=== PATIENT | female | born 1960 | race Caucasian/White ===

== ENCOUNTER → 2023-08-18 12:08 | Outpatient (REF) | payer BC, SELFPAY | LOC: RAD 12:08 | PROVIDERS: ATTENDING PHYSICIAN Family Medicine | DX: R05.8 Other specified cough (principal); M79.651 Pain in right thigh | CPT/HCPCS: 71046; 93971 ==

== ENCOUNTER → 2023-09-10 12:01 | Outpatient (REF) | payer BC, SELFPAY | LOC: HWRAD 12:01 | PROVIDERS: ATTENDING PHYSICIAN Family Medicine; FAMILY PHYSICIAN Physician Assistant Medical | DX: J18.9 Pneumonia, unspecified organism (principal); E55.9 Vitamin D deficiency, unspecified | CPT/HCPCS: 71046 ==

== ENCOUNTER → 2024-01-12 08:21 | Outpatient (REF) | payer BC, SELFPAY | LOC: HWRAD 08:21 | PROVIDERS: ATTENDING PHYSICIAN Family Medicine; REFERRING PHYSICIAN Family Medicine | DX: J18.9 Pneumonia, unspecified organism (principal) | CPT/HCPCS: 71250 ==

== ENCOUNTER → 2024-02-06 08:38 | Outpatient (REF) | payer BC, SELFPAY | LOC: PET 08:38 | PROVIDERS: ATTENDING PHYSICIAN Family Medicine | DX: R91.1 Solitary pulmonary nodule (principal) | CPT/HCPCS: 78815; A9552 ==

== ENCOUNTER 2024-03-01 06:19 | Day surgery (SDC) | payer BC, SELFPAY ==
[2024-02-24 07:45] VITALS: BMI 31.7
[2024-02-24 08:53] LABS: INR 0.95; PT 12.5 Sec (11.4-14.6)
[2024-02-24 08:54] LABS: APTT 29.5 Sec (23.4-35.0)
[2024-02-24 08:55] LABS: Hemoglobin 12.5 g/dL (12.0-16.0); Mean Corp Hgb Conc. 34.7 g/dL (33.0-37.0); Mean Corpuscular Hgb 31.3 pg (27.0-31.0); Mean Corpuscular Volume 90.2 fL (81.0-99.0); Mean Platelet Volume 11.3 fL (7.4-10.4); Platelet Count 171 10^3/uL (130-400); Red Blood Cell Count 3.99 10^6/uL (4.20-5.40); Red Cell Dist. Width 12.7 % (11.5-14.5); White Blood Cell Count 2.6 10^3/uL (4.8-10.8)
[2024-02-24 09:19] LABS: Blood Urea Nitrogen 20 mg/dl (7-17); Calcium 9.3 mg/dl (8.4-10.2); Carbon Dioxide 25 mmol/L (22-30); Chloride 107 mmol/L (98-107); Estimated Creatinine Clearance 83 ml/min; Glucose 93 mg/dl (70-99); Sodium 139 mmol/L (135-145); eGFR > 60.00
[2024-03-01] VITALS (11 sets, daily range): BP systolic 112–144; BP diastolic 56–85; BMI 31.7
[2024-03-01] MEDS: ZOFRAN 4 MG IV (11:49)
== END 2024-03-01 14:16 | disposition home or self-care (01) ==
LOC: GI 06:19
PROVIDERS: ATTENDING PHYSICIAN Internal Medicine Critical Care Medicine; FAMILY PHYSICIAN Family Medicine
DX: R59.0 Localized enlarged lymph nodes (principal); R91.8 Other nonspecific abnormal finding of lung field; D14.32 Benign neoplasm of left bronchus and lung
CPT/HCPCS: 31629; 31628; 31624; 31623; 31627; 88173; 88305; 88312; 36415; 71045; 76000; 80048; 85027; 85610; 85730; 87015; 87070; 87102; 87116; 87205; 88112; 88333; 93005; 94640; C1887

== ENCOUNTER → 2024-05-24 09:37 | Outpatient (REF) | payer BC, SELFPAY | LOC: HWWDC 09:37 | PROVIDERS: ATTENDING PHYSICIAN Family Medicine | DX: Z12.31 Encounter for screening mammogram for malignant neoplasm of breast (principal) | CPT/HCPCS: 77063; 77067 ==

== ENCOUNTER → 2024-08-25 14:17 | Outpatient (REF) | payer OTHER, SELFPAY | LOC: HWRAD 14:17 | PROVIDERS: ATTENDING PHYSICIAN Family Medicine | DX: S89.92XA Unspecified injury of left lower leg, initial encounter (principal); M54.16 Radiculopathy, lumbar region | CPT/HCPCS: 72110; 73564 ==

== ENCOUNTER → 2024-09-30 09:21 | Outpatient (REF) | payer OTHER, SELFPAY | LOC: HWRAD 09:21 | PROVIDERS: ATTENDING PHYSICIAN Obstetrics & Gynecology Gynecology; FAMILY PHYSICIAN Family Medicine | DX: Z78.0 Asymptomatic menopausal state (principal) | CPT/HCPCS: 77080 ==

== ENCOUNTER → 2024-11-12 10:51 | Outpatient (REF) | payer MEDICARE, SELFPAY | LOC: PAVMRI 10:51 | PROVIDERS: ATTENDING PHYSICIAN Family Medicine | DX: M25.562 Pain in left knee (principal); M25.469 Effusion, unspecified knee; M79.605 Pain in left leg | CPT/HCPCS: 73721 ==

== ENCOUNTER 2025-01-03 11:44 | Emergency (ER) | payer MEDICARE, SELFPAY ==
[2025-01-03 11:47] VITALS: BP 172/118
[2025-01-03 12:13] LABS: % Basophils 1.1 % (0-2); % Eosinophils 7.7 % (0-6); % Immature Granulocytes 0.5 % (0-0.5); % Lymphocytes 21.4 % (20.5-51.1); % Monocytes 12.5 % (1.7-9.3); % Neutrophils 56.8 % (42.2-75.2); Absolute Basophils 0.1 10^3/uL (0-0.2); Absolute Eosinophils 0.3 10^3/uL (0-0.7); Absolute Lymphocytes 0.9 10^3/uL (1.2-3.4); Absolute Monocytes 0.6 10^3/uL (0.1-0.6); Absolute Neutrophils 2.5 10^3/uL (1.4-6.5); Hematocrit 40.7 % (37.0-47.0); Hemoglobin 14.3 g/dL (12.0-16.0); Mean Corp Hgb Conc. 35.1 g/dL (33.0-37.0); Mean Corpuscular Hgb 31.2 pg (27.0-31.0); Mean Corpuscular Volume 88.9 fL (81.0-99.0); Mean Platelet Volume 10.1 fL (7.4-10.4); Nucleated Red Blood Cells % 0 %; Platelet Count 198 10^3/uL (130-400); Red Blood Cell Count 4.58 10^6/uL (4.20-5.40); Red Cell Dist. Width 13.1 % (11.5-14.5); White Blood Cell Count 4.4 10^3/uL (4.8-10.8)
[2025-01-03 12:14] VITALS: BP 178/85
[2025-01-03 12:18] LABS: Glucose - Point of Care 110 mg/dl (70-99)
[2025-01-03 12:40] LABS: ALT (SGPT) 64 U/L (0-35); AST (SGOT) 36 U/L (14-36); Albumin 4.9 g/dl (3.5-5.0); Alkaline Phosphatase 127 U/L (38-126); Blood Urea Nitrogen 19 mg/dl (7-17); Calcium 10.2 mg/dl (8.4-10.2); Carbon Dioxide 25 mmol/L (22-30); Glucose 106 mg/dl (70-99); Total Bilirubin 1.1 mg/dl (0.2-1.3); Total Protein 8.1 g/dl (6.3-8.2); eGFR > 60.00
[2025-01-03 12:51] LABS: Troponin I < 0.012 ng/ml
[2025-01-03 13:08] LABS: Chloride 107 mmol/L (98-107); Sodium 139 mmol/L (135-145)
--- NOTE | 2025-01-03 13:27 | ED.GENMED ---
History of Present Illness
<YOMAIRA Molina Last Filed: 01/03/25 16:40>
General
Chief Complaint: Numbness
Source: patient
Exam Limitations: none
Time Seen by Provider: 01/03/25 12:43
History of Present Illness
History of Present Illness:
64-year-old female otherwise quite healthy presents with dyspnea on exertion worsening over several days with constant chest pain on the left side with associated numbness to the left hand. Than the left hand numbness has been present over the past
couple weeks. Yesterday she was sitting eating a meal and developed the sudden onset of a dizzy sensation. This resolved since then. No vomiting. She does note that every now and then she gets abdominal pain after she eats. The pain in her
chest is constant without any aggravating or alleviating factors. No other complaints at this time
Past History
<YOMAIRA Molina Last Filed: 01/03/25 16:40>
Past History
ED Past Medical History: Other (Lipoma removal)
ED Past Surgical History: None
Social History
Tobacco: Non-smoker
Alcohol: None
Drug: None
Personal:
Living: with family
Employment: Employed
Family History
Family History: Negative Early CAD
Phy Exam
<YOMAIRA Molina Last Filed: 01/03/25 16:40>
Physical Exam
Physical Exam:
General: Well-appearing female no acute respiratory distress
HEENT: Normocephalic atraumatic
Heart: Regular rate and rhythm
Lungs: Clear no wheeze
Abdomen is soft nontender nondistended
Extremities: No cyanosis
Neurologic alert and oriented good strength and sensation to the upper lower extremities no drift
Course
<YOMAIRA Molina Last Filed: 01/03/25 16:40>
Orders/Labs/Results
Orders:
Orders
01/03/25 11:49
Electrocardiogram (*1) Urgent
Reason for Study: Chest Pain
CT Head W/o Iv Contrast Urgent
Comment:
Reason For Exam: head pain and left arm numbness
EKG- Treatment ONCE
01/03/25 11:59
Complete Blood Count/With Diff Urgent
Comprehensive Metabolic Panel Urgent
Troponin I Urgent
01/03/25 12:57
CR Chest - 2 Views Urgent
Comment:
Reason For Exam: sob
01/03/25 14:17
D-Dimer Urgent
01/03/25 15:00
CT Head & Neck Angio W/wo IV Urgent
Reason For Exam: neck pain, dizziness
Abnormal Lab Results
01/03/25 01/03/25
11:59 12:16
WBC 4.4 L 10^3/uL
(4.8-10.8)
MCH 31.2 H pg
(27.0-31.0)
Absolute Lymphs (auto) 0.9 L 10^3/uL
(1.2-3.4)
Monocytes % 12.5 H %
(1.7-9.3)
Eosinophils % 7.7 H %
(0-6)
BUN 19 H mg/dl
(7-17)
Glucose 106 H mg/dl
(70-99)
ALT 64 H U/L
(0-35)
Alkaline Phosphatase 127 H U/L
(38-126)
POC Glucose 110 H mg/dl
(70-99)
01/03/25 11:59
01/03/25 11:59
Vital Signs
Initial and Last Documented VS:
Initial Vital Signs
Temp Pulse Resp BP Pulse Ox
98.0 F 105 16 172/118 98
01/03/25 11:47 01/03/25 11:47 01/03/25 11:47 01/03/25 11:47 01/03/25 11:47
Last Documented Vital Signs
Temp Pulse Resp BP Pulse Ox
98.0 F 75 18 169/97 98
01/03/25 11:47 01/03/25 16:37 01/03/25 16:37 01/03/25 16:37 01/03/25 16:37
<Yobani Tan MD - Last Filed: 01/03/25 14:42>
Orders/Labs/Results
Orders:
Orders
01/03/25 11:49
Electrocardiogram (*1) Urgent
Reason for Study: Chest Pain
CT Head W/o Iv Contrast Urgent
Comment:
Reason For Exam: head pain and left arm numbness
EKG- Treatment ONCE
01/03/25 11:59
Complete Blood Count/With Diff Urgent
Comprehensive Metabolic Panel Urgent
Troponin I Urgent
01/03/25 12:57
CR Chest - 2 Views Urgent
Comment:
Reason For Exam: sob
01/03/25 14:17
D-Dimer Urgent
01/03/25 15:00
CT Head & Neck Angio W/wo IV Urgent
Reason For Exam: neck pain, dizziness
Abnormal Lab Results
01/03/25 01/03/25
11:59 12:16
WBC 4.4 L 10^3/uL
(4.8-10.8)
MCH 31.2 H pg
(27.0-31.0)
Absolute Lymphs (auto) 0.9 L 10^3/uL
(1.2-3.4)
Monocytes % 12.5 H %
(1.7-9.3)
Eosinophils % 7.7 H %
(0-6)
BUN 19 H mg/dl
(7-17)
Glucose 106 H mg/dl
(70-99)
ALT 64 H U/L
(0-35)
Alkaline Phosphatase 127 H U/L
(38-126)
POC Glucose 110 H mg/dl
(70-99)
01/03/25 11:59
01/03/25 11:59
Vital Signs
Initial and Last Documented VS:
Initial Vital Signs
Temp Pulse Resp BP Pulse Ox
98.0 F 105 16 172/118 98
01/03/25 11:47 01/03/25 11:47 01/03/25 11:47 01/03/25 11:47 01/03/25 11:47
Last Documented Vital Signs
Temp Pulse Resp BP Pulse Ox
98.0 F 75 18 169/97 98
01/03/25 11:47 01/03/25 16:37 01/03/25 16:37 01/03/25 16:37 01/03/25 16:37
<Brayan Cox PA-C - Last Filed: 01/03/25 16:40>
MDM/Problems Addressed
Differential Diagnosis Includes:
Chest pain ongoing since yesterday constant dull ache. Consider ACS however symptoms are atypical. She does endorse some dyspnea on exertion over the past several weeks with associated constant numbness to the left hand.
Consider radiculopathy. No signs suggestive of acute stroke.
CT head ordered through triage. EKG shows sinus rhythm. Troponin pending
<Brayan Cox PA-C - Last Filed: 01/03/25 16:40>
*Pulse Oximetry
SaO2: 98
Oxygen Mode of Delivery: Room air
Patient hypoxic: no
*Critical Care Note
Total Time (30-74mins, 75-104mins- exclusive of procedures): Not Applicable
<Brayan Cox PA-C - Last Filed: 01/03/25 16:40>
Update Note
Update Note:
Discussed with emergency room attending recommended D-dimer which was negative but given the neck pain and paresthesias to the left arm and dizziness will order CT angio of the neck. If negative safe for discharge as troponin is undetectable CT
angio of the head and neck is negative. Patient reassured. Suspect radiculopathy with atypical chest discomfort. Stable for discharge
ED Attending Note
<Brayan Cox PA-C - Last Filed: 01/03/25 16:40>
-
Portions of this chart may have been created with voice recognition software.� Occasional wrong word or��sound alike� substitutions may have occurred due to the inherent limitations of voice recognition software.
<Yobani Tan MD - Last Filed: 01/03/25 14:42>
ED Attending Note
Patient seen and examined by attending physician: Yes
I performed the substantive portion of visit, reviewed & personally made and approve the management plan that is documented in note by myself or HERBERT.: Yes
ED Attending Note:
64-year-old female presents with multiple symptoms. She has had 3 weeks of numbness to the left arm pointing mostly to the 1st and 2nd digit in the superior aspect of the upper arm. No weakness in the arm. No general arm weakness. No other acute
neurologic symptoms, denying visual issues speech issues gait issues other weakness or numbness. She did have a brief episode of disequilibrium yesterday however. This resolved. In addition she has had some shortness of breath with exertion which
is unusual. She also has some left upper chest pain. Currently symptoms are minimal.
On exam patient is nontoxic in no distress
GENERAL: Alert and oriented in no apparent distress
EYE: Orbits normal.
NECK: Supple
CARDIAC: Regular rate and rhythm without any obvious murmurs.
LUNGS: Clear breath sounds,normal
ABDOMEN: Soft, without focal tenderness or distention
NEUROLOGICAL: Alert and oriented , cranial nerves II through XII intact. Speech normal. [id number] normal. Subjectively the paresthesias are to the left 1st and 2nd digit.
SKIN: Warm and dry, no rash or lesion, no discoloration, skin intact.
MUSCULOSKELETAL: No edema,no deformity.Good color
PSYCH: Normal and appropriate interaction.
Impression is paresthesias to the left arm most consistent with radiculopathy along with some shortness of breath upper chest pain nonpleuritic in nature and a very brief episode of disequilibrium yesterday. Cannot totally put all her symptoms
together. She is very nontoxic and has a benign exam. Highly doubt primary cardiac issue as this would not explain all her symptoms, no significant risk factors and exercises very regularly without issues. EKG is normal troponin is normal.
Highly doubt stroke. The paresthesias are very C5-C6 and distribution. As for the shortness of breath would have to rule out pulmonary emboli although unlikely. If D-dimer is negative we will get a chest x-ray and a CT angio of the neck to rule
out dissection which is also unlikely. If D-dimer is positive would CT the chest also.
Discharge Plan
Departure
Patient Disposition: Home (Routine Discharge)
Date of Disposition: 01/03/25
Time of Disposition: 16:39
Patient with high blood pressure during this ER visit?: No
Discharge Problem:
Chest pain
Instructions: Paresthesia (DC), Chest Pain PCP Follow Up
Prescriptions:
No Action
minoxidil 5 % Solution
1 ml TOPICAL BID
Referrals:
Thomas Givens MD [Family Provider, Family Practice]
Activity Restrictions/Additional Instructions:
Please return here for worsening symptoms otherwise follow-up with your doctor
Interventions
Interventions:
*Risk Screen - Suicide Last Done: 01/03/25 11:47
*General Assessment Last Done: 01/03/25 14:28
*Neglect/Abuse Screening Last Done: 01/03/25 11:47
*ED- Fall Risk Assessment Last Done: 01/03/25 14:28
ED- Neurological Assessment Last Done: 01/03/25 14:28
Discharge Date and Time
Print Language: MALAY
[2025-01-03 13:44] LABS: Potassium 4.4 mmol/L (3.5-5.1)
[2025-01-03 14:41] LABS: D-Dimer 0.35 ug/mlFEU (0.00-0.50)
[2025-01-03 16:37] VITALS: BP 169/97
== END 2025-01-03 16:49 | disposition home or self-care (01) ==
LOC: EMR 11:44
PROVIDERS: Emergency Medicine; Physician Assistant; EMERGENCY PHYSICIAN Emergency Medicine; FAMILY PHYSICIAN Family Medicine
DX: R07.89 Other chest pain (principal); E04.2 Nontoxic multinodular goiter
CPT/HCPCS: 99285; 70450; 70496; 70498; 71046; 80053; 82962; 84484; 85025; 85379; 93005; Q9967

== ENCOUNTER → 2025-05-18 08:58 | Outpatient (REF) | payer MEDICARE, SELFPAY | LOC: HWRAD 08:58 | PROVIDERS: ATTENDING PHYSICIAN Family Medicine | DX: E04.1 Nontoxic single thyroid nodule (principal) | CPT/HCPCS: 76536 ==

== ENCOUNTER 2025-06-21 23:35 | Observation (INO) | payer MEDICARE, SELFPAY ==
[2025-06-21 15:47] LABS: Hematocrit 38.3 % (37.0-47.0); Hemoglobin 13.2 g/dL (12.0-16.0); Mean Corp Hgb Conc. 34.5 g/dL (33.0-37.0); Mean Corpuscular Volume 86.5 fL (81.0-99.0); Nucleated Red Blood Cells % 0 %; Platelet Count 208 10^3/uL (130-400); Red Cell Dist. Width 13.2 % (11.5-14.5)
[2025-06-21 18:57] VITALS: BP 158/107
[2025-06-21 19:00] VITALS: BP 188/99
--- NOTE | 2025-06-21 19:28 | ED.CVA ---
History of Present Illness
General
Chief Complaint: CVA/TIA Symptoms
Time Seen by Provider: 06/21/25 19:09
Onset of Stroke Symptoms
Onset of symptoms known: No
Time pt last seen normal is known: No
History of Present Illness
History of Present Illness:
Patient is a 64-year-old woman with history of lung nodules presenting to the emergency department with a headache. Patient states that she has had this headache that occurs after intercourse. This first occurred 2 weeks ago and then occurred 2
days ago. She states that shortly after she developed a 10 out of 10 headache that resolved after 8 to 10 minutes. She states that the headache is all around though does get a tight feeling in her left jaw when it occurs as well. After which she
feels extremely fatigued. She did have nausea with the last headache. No photophobia numbness tingling weakness. However she notes that she is having word finding difficulty. She also notes that she has a subtle left-sided droop to her left
eyelid. Of note she does state that she has cataracts recently but is unsure when she developed the droop. She does not see eye doctor regularly. She did smoke but quit. At this time patient just feels tired but otherwise has no complaints. She
does note that in the past she is also had left-sided numbness that has since resolved. Has never had an MRI or stroke evaluation she talked to her doctor and told her to come to the emergency room for further evaluation
Past History
Past History
ED Past Medical History: Other (Lipoma removal)
ED Past Surgical History: None
Social History
Tobacco: Non-smoker
Alcohol: None
Drug: None
Personal:
Living: with family
Employment: Employed
Family History
Family History: Negative Early CAD
Phy Exam
Physical Exam
Physical Exam:
GENERAL: in no acute distress
HEENT: normocephalic, extraocular movements intact, moist oral mucosa
NECK: normal inspection
RESPIRATORY: no respiratory distress, clear to auscultation bilaterally
CARDIOVASCULAR: regular rate and rhythm
ABDOMEN/: soft, non-distended, non-tender to palpation, no rebound or guarding
EXTREMITIES: non-tender, no edema/swelling
NEUROLOGIC: alert and oriented x 3, cranial nerves II-XII intact except for very subtle droop to the left eye, right upper extremity strength 5/5, left upper extremity strength 5/5, right lower extremity strength 5/5, left lower extremity strength
5/5, normal sensation to light touch, normal [id number] and [id number], gait not tested formally
SKIN: warm
Course
Orders/Labs/Results
Orders:
Orders
06/21/25 15:[address] [CT Head W/o Iv Contrast] Urgent
Comment:
Reason For Exam: L side droop
06/21/25 15:27
Complete Blood Count/With Diff Urgent
06/21/25 19:06
Comprehensive Metabolic Panel Urgent
06/21/25 19:28
CT Head & Neck Angio W/wo IV Urgent
Comment:
Reason For Exam: headache, r/o aneurysm, left jaw pain
06/21/25 19:32
Electrocardiogram (*1) Urgent
Reason for Study: TIA/Stroke
EKG- Treatment ONCE
Abnormal Lab Results
06/21/25 06/21/25
15:27 19:06
WBC 4.2 L 10^3/uL
(4.8-10.8)
Absolute Lymphs (auto) 0.8 L 10^3/uL
(1.2-3.4)
Lymphocytes % 18.9 L %
(20.5-51.1)
Monocytes % 10.7 H %
(1.7-9.3)
BUN 18 H mg/dl
(7-17)
06/21/25 15:27
06/21/25 19:06
Vital Signs
Initial and Last Documented VS:
Initial Vital Signs
Temp Pulse Resp Pulse Ox
98.1 F 94 20 97
06/21/25 15:08 06/21/25 15:08 06/21/25 15:08 06/21/25 15:08
Last Documented Vital Signs
Temp Pulse Resp BP Pulse Ox
98.1 F 78 20 171/95 95
06/21/25 15:08 06/21/25 21:45 06/21/25 21:45 06/21/25 20:00 06/21/25 21:15
MDM/Problems Addressed
Differential Diagnosis Includes:
Patient is a 64-year-old woman presenting to the emergency department after she developed a headache after intercourse has since resolved though since then has been having intermittent episodes of word finding difficulty and history of left-sided
numbness tingling. On arrival patient is hypertensive. Exam is otherwise reassuring aside from a very mild left-sided eye lid droop. Concern for subarachnoid versus TIA/CVA. Patient does have risk factors. Blood work obtained prior to
evaluation is unremarkable. Noncontrast head CT negative. After shared decision making we will obtain CT angio of the head and neck given the location of the pain. Patient will likely benefit from admission for further imaging such as MRI.
*Pulse Oximetry
SaO2: 96
Oxygen Mode of Delivery: Room air
Patient hypoxic: no
*Critical Care Note
Total Time (30-74mins, 75-104mins- exclusive of procedures): Not Applicable
Update Note
Update Note:
On reevaluation patient resting comfortably. CT angio negative. Given the transient word finding difficulty left-sided numbness tingling, eyelid droop patient will need admission for further evaluation. Discussed with hospitalist who accepted
patient to their service.
ED Attending Note
-
Portions of this chart may have been created with voice recognition software.� Occasional wrong word or��sound alike� substitutions may have occurred due to the inherent limitations of voice recognition software.
Discharge Plan
Departure
Patient Disposition: Admit
Date of Disposition: 06/21/25
Time of Disposition: 21:53
Presentation/result/management discussed w/ accepting MD/DO: Hospitalist
Discharge Problem:
TIA (transient ischemic attack)
Prescriptions:
No Action
minoxidil 5 % Solution
1 ml TOPICAL BID
Referrals:
Thomas Givens MD [Family Provider, Family Practice]
Interventions
Interventions:
*General Assessment Last Done: 06/21/25 15:08
*Neglect/Abuse Screening Last Done: 06/21/25 15:08
*ED COVID-19 Vaccine History Last Done: 06/21/25 19:07
*ED Influenza Vaccine History Last Done: 06/21/25 19:07
[facility] Fall Risk Assessment Tool Last Done: 06/21/25 19:07
*Risk Screen - Suicide (C-SSRS) Last Done: 06/21/25 15:08
ED- Pulmonary Assessment Last Done: 06/21/25 19:08
ED- Neurological Assessment Last Done: 06/21/25 19:08
ED- Cardiac Assessment Last Done: 06/21/25 19:08
Discharge Date and Time
Print Language: BANGLADESHI
[2025-06-21 20:00] VITALS: BP 171/95
[2025-06-21 20:02] LABS: ALT (SGPT) 35 U/L (0-35); AST (SGOT) 28 U/L (14-36); Albumin 4.9 g/dl (3.5-5.0); Alkaline Phosphatase 108 U/L (38-126); Blood Urea Nitrogen 18 mg/dl (7-17); Calcium 9.9 mg/dl (8.4-10.2); Carbon Dioxide 25 mmol/L (22-30); Chloride 101 mmol/L (98-107); Glucose 80 mg/dl (70-99); Potassium 3.9 mmol/L (3.5-5.1); Sodium 136 mmol/L (135-145); Total Protein 8.1 g/dl (6.3-8.2); eGFR > 60.00
[2025-06-21 22:00] VITALS: BP 171/87
--- NOTE | 2025-06-21 22:44 | HPS.HSE ---
Addendum entered and electronically signed by Kam Noel DO 06/21/25 23:55:
Patient seen and examined independently. Agree with findings and plan as set forth by Jadyn Schultz PA-C.
Patient is a 64y F with no significant PMH who presents to ED complaining of headache. Patient reports two episodes of post-coital headache over the past two weeks. Symptoms occur several minutes after sexual activity - no headache during sex.
No prior h/o similar symptoms. Patient also notes drooping of the L eyelid. Intermittent episodes of word-finding difficulty. No numbness / tingling. No chest pain / dyspnea.
Patient had cataract surgery about one month ago and notes that she had no similar headaches, eyelid drooping, etc prior to that surgery.
Ass:
Headache
Ptosis
Hypertension
Plan:
Observe overnight for further evaluation and treatment.
MRI in AM.
Neurology evaluation.
Check myasthenia panel.
Follow for any new / worsening symptoms.
Monitor BP and begin antihypertensive med regimen if persistent hypertension.
Original Note:
Family Physician
-
Family Physician: Thomas Givens
Chief Complaint
-
Headache, Slurred Speech and Facial Droop
History of Present Illness
Patient is a 64 y/o female who presents with intermittent headache and word finding difficulty with new facial droop. Patient reports in May she under bilateral cataract surgery. She reports two over the past two weeks she has experienced two
very severe headaches which occurred after intercourse. Patient reports both times headaches lasted about 5-10 minutes and then slowly resolved. She reports intermittent episodes of word finding difficulty which last about a minute or so. She
also expresses concern that her eyelids have been drooping since her cataract surgery, and notes that over the last few weeks she has very little energy and feels very tired. She denies any focal numbness, tingling or weakness.
Medical History
Past Medical History
Past Medical History: Reports None
Past Surgical History: Reports Other
Additional Past Surgical History:
Cataract Surgery
Lipoma Removal
Lap Band and Subsequent Removal
Social History
Tobacco: Former Smoker (Quit in her 20s)
Family History
Family History: Other (Susitnat-Ciara - )
Allergies / Home Medications
Allergies reflects when Allergies were last updated in op5.
Home Medications with original date entered in op5
Allergy/Medication List:
Allergies
Allergy/AdvReac Type Severity Reaction Status Date / Time
adhesive Allergy Itching Verified 06/21/25 15:13
nickel Allergy rash Verified 06/21/25 15:13
itching
propranolol Allergy cramping Verified 06/21/25 15:13
Sulfa (Sulfonamide Allergy Nausea / Verified 06/21/25 15:13
Antibiotics) Vomiting
Home Medications
No Meds [No Current Medications] 06/21/25
Review of Systems
-
History Source: Patient
A 12 point ROS was completed and negative except as noted: Yes
Constitutional: Denies Fever or Chills
Respiratory: Denies Cough or Trouble Breathing
Cardiac: Denies Chest Pain or Palpitations
Neurological: Reports See HPI
Physical Exam
Vital Signs
Vital Signs
Temp Pulse Resp BP Pulse Ox
98.1 F 80 13 171/87 94
06/21/25 15:08 06/21/25 22:30 06/21/25 22:30 06/21/25 22:00 06/21/25 22:00
Physical Exam
General: Comfortable and Conversant
HEENT: Anicteric, Moist mucous membranes and Other (Bilateral ptosis)
Respiratory: Clear and Non Labored Respirations
Cardiac: S1/S2 and Regular Rhythm
GI: Soft and Non Tender
Rectal: Deferred by Provider
Musculoskeletal: No Clubbing, No Cyanosis and No Edema
Skin: Warm and Dry
Neuro: Awake, Alert, Oriented and Nonfocal/grossly intact; No Slurred Speech
Psych: Calm
Laboratory Results
-
06/21/25 15:27
06/21/25 19:06
Laboratory Results
Total Bilirubin 0.7 mg/dl (0.2-1.3) 06/21/25 19:06
AST 28 U/L (14-36) 06/21/25 19:06
ALT 35 U/L (0-35) 06/21/25 19:06
Alkaline Phosphatase 108 U/L (38-126) 06/21/25 19:06
Data Reviewed
-
CT Scan: Report Reviewed by me
Lab Data: Labs Reviewed by me
Impression/Plan
-
Various Neurologic Symptoms including headache, word finding difficulty and ptosis of unclear etiology
-Differential includes migraine with aura, hypertensive encephalopathy and myasthenia gravis
-Consult Neurology
-Check Brain MRI
-Check Acetylcholine receptor antibody
Uncontrolled Hypertension
-Reviewed outpatient records with noted normal blood pressure at outpatient visit in April 2025
-Start amlodipine
DVT proph: SCDs
Code Status: Full Code
[2025-06-21 23:49] VITALS: BP 159/94
[2025-06-22] MEDS: TYLENOL 650 MG PO (00:03)
[2025-06-22 04:00] VITALS: BP 143/85
[2025-06-22 06:21] LABS: Hematocrit 38.4 % (37.0-47.0); Hemoglobin 12.8 g/dL (12.0-16.0); Mean Corp Hgb Conc. 33.3 g/dL (33.0-37.0); Mean Corpuscular Volume 89.1 fL (81.0-99.0); Platelet Count 184 10^3/uL (130-400); Red Cell Dist. Width 13.3 % (11.5-14.5)
[2025-06-22 06:23] LABS: Blood Urea Nitrogen 14 mg/dl (7-17); Calcium 9.4 mg/dl (8.4-10.2); Carbon Dioxide 26 mmol/L (22-30); Chloride 105 mmol/L (98-107); Glucose 85 mg/dl (70-99); HDL Cholesterol 93 mg/dl; LDL Cholesterol, Calculated 96 mg/dl; Potassium 3.8 mmol/L (3.5-5.1); Sodium 136 mmol/L (135-145); Very Low Density Lipoprotein 14 mg/dl (0-30); eGFR > 60.00
--- NOTE | 2025-06-22 07:24 | W.PN.HOSP.TC ---
Addendum entered and electronically signed by Amanda Nava MD 06/22/25 19:00:
I saw and evaluated the patient independently. I reviewed and discussed the resident�s note and agree with findings and plan as documented by Dr. Hartley.
GENERAL: well developed, well nourished, female in no apparent distress
HEENT: NC/AT--? right lower lid ptosis
HEART: regular rate and rhythm, +S1, +S2
LUNGS : clear to auscultation bilaterally
ABDOM: soft, nontender, nondistended, + bowel sounds
EXT: no cyanosis, clubbing, or edema
NEUROLOGIC: grossly intact
Post-coital MAXWELL, likely triggered by HTN urgency from uncontrolled HTN--CT haed, CTA head and neck and MRI all neg for acute issues--amlodipine started--continue--apprec neuro--some concern for myasthenia gravis--lab work pending
DVT proph-- SCDs
Code status-- full
OK for D/C
Original Note:
Today's Communication/Plan
-
- Discharge home today after MRI
- MRI brain
- Discharge on amlodipine 5mg daily
- Pending AchR ab labs outpatient
- F/u with PCP outpatient for BP mgmt
Assessment / Plan
Assessment / Plan
64yo F with no PMH (although historically high documented BPs) who presented with headaches following intercourse for last 2 weeks, along with L eyelid droop and intermittent word-finding difficulty, found to have elevated BP with unremarkable CT
head and CTA head/neck.
#Post-coital MAXWELL, likely triggered by HTN
#Uncontrolled essential HTN
Pt not on any BP meds at baseline, BP was 171/95 on presentation. Historical BP in chart demonstrate poor control. Pt states she does not like taking meds, takes no meds. When patient had episode of MAXWELL in the room, her BP was 175/104. CT head and
CTA head/neck without signs of stroke or stenosis. No focal neuro sx on exam. No word finding difficulty or ptosis on exam. Presentation most c/w post-coital MAXWELL in s/o poorly controlled HTN. Will r/o small CVA vs. MG due to c/o ptosis.
- Continue amlodipine 5mg daily at discharge
- MRI brain today to r/o small ischemic CVA
- Pending AchR abs
- Neuro following, appreciate recs
- Pt should f/u with PCP for BP mgmt
#Global
- DVT ppx: SCDs
- Code: full
- Diet: regular
- Dispo: home today
Anticipated Discharge: Today
Subjective/Interval History
-
Date of Service: June 22, 2025
Pt feeling okay this am, conversant & calm. Denies any CP, SOB, n/v, or vision changes. Had intermittent MAXWELL in L frontotemporal region during conversation. States that she would like to be out by 5pm today.
Objective Data
-
Labs:
Laboratory Results
06/21/25 06/22/25
19:06 05:54
WBC 3.3 L
Hgb 12.8
Hct 38.4
Plt Count 184
Sodium 136 136
Potassium 3.9 3.8
Chloride 101 105
Carbon Dioxide 25 26
BUN 18 H 14
Creatinine 0.7 0.6
Glucose 80 85
Calcium 9.9 9.4
Total Bilirubin 0.7
AST 28
ALT 35
Alkaline Phosphatase 108
Vital Signs:
Vital Signs
Temp Pulse Resp BP Pulse Ox
98.1 F 70 12 143/85 91
06/22/25 07:15 06/22/25 06:30 06/22/25 06:30 06/22/25 04:00 06/22/25 06:30
Review of Systems
-
History Source: Patient
All other systems: Reviewed and negative
Constitutional: Reports No Symptoms
EENT: Reports No Symptoms Reported
Respiratory: Reports No Symptoms
Cardiac: Reports No Symptoms
Abdomen/GI: Reports No Symptoms
Musculoskeletal: Reports Arthralgias (L knee meniscal tear pain )
Skin: Reports No Symptoms
Neuro: Reports Headache
Physical Exam
-
General: Well Developed, Well Nourished and No Apparent Distress
HEENT: Normocephalic, Atraumatic, Moist Mucous Membranes, No Ptosis and PERRLA
Respiratory: Clear to Auscultation and Non Labored Respirations
Cardiac: Regular Rhythm
GI: Soft, Nontender, Nondistended and Other (abd binder on)
Musculoskeletal: No Edema
Skin: Warm and Dry
Neuro: Awake, Alert, Oriented, Nonfocal/Grossly Intact and Other (speech clear, full, without aphasia )
Psych: Calm
Data Reviewed
-
Total Time Spent with Patient (in minutes): 15
Critical Care Time (in minutes): 45
CT Scan: Report Reviewed by me
Labs: Labs Reviewed by me
[2025-06-22 07:43] VITALS: BP 155/91
[2025-06-22 08:00] VITALS: BP 157/88
--- NOTE | 2025-06-22 09:00 | CON.NEURO4 ---
Addendum entered and electronically signed by Kishan Hirsch MD 06/22/25 15:14:
Studies reviewed.
I have personally examined the patient. I reviewed and agree with the NETWORK ACCOUNT MANAGER's Note.
My addenda:
Awake, alert, interactive. No acute distress.
Speech intact.
Follows 2-step requests w/o difficulty. No tremor.
Extra-ocular movements grossly intact.
Facial movements full and symmetric. Hearing intact to normal conversational volume.
Normal UE movements bilaterally.
Neck: full ROM.
Chest: no dyspnea
Heart: no JVD
Ext: (-) Clubbing, (-) Cyanosis, (-) Edema
IMPRESSIONS/RECOMMENDATIONS:
Abrupt onset of postcoital headache in a patient with recurrent presentations for headaches since 2017 to this hospital's emergency department and significantly elevated blood pressure
We will follow MRI of brain results, unlikely to be due to stroke
Start antihypertensive medication routinely to prevent future stroke and heart attack
As needed [id number] acetaminophen for headache control
D/W patient
All questions answered.
Will continue to follow patient as needed.
Original Note:
Documented by User: Yaquelin Perez NP 06/22/25 11:08
Consultation - Neurology 4
-
CONSULTING PHYSICIAN: Kishan Hirsch MD
REFERRING PHYSICIAN: Hospitalists/Jadyn Schultz PA-C
DICTATED BY: CATHERINE Ta
DATE/TIME OF REQUEST: 06/21/25
DATE/TIME OF CONSULTATION: 06/22/25
Reason for Consultation: Headache
History of Present Illness:
This is a 64-year-old right-handed female who has presented to the hospital with report of severe postcoital headache. Patient reports that about 10 days ago she developed a severe postcoital headache about 3-4 minutes after intercourse. It felt
like her head was in a vice. This lasted for 10-15 minutes before resolving. Then two nights ago, the same event recurred. She denies any history of this happening in the past. CT head and CTA head/neck was obtained on arrival and are negative for
any acute abnormalities. Her blood pressure was notably elevated up to 188/99 and has been consistently elevated.
She notes having occasional headaches which she reports are left-sided sharp pains lasting a few seconds at a time. 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 She reports having cataract surgery about a month ago and noticing left
eyelid drooping since then. She also reports tingling in all off her fingertips for months. She also reports some trouble swallowing for several months too, it feels like even water gets stuck in her throat. She denies any dizziness, vision changes,
speech difficulty, and weakness. She denies any history of TIA or stroke in the past and she is not taking any blood-thinning medications.
Past Medical History: lung nodules, thyroid nodules, JOSE diagnosed 20 years ago (not using cpap), insomnia, osteopenia, left lateral meniscus tear
Surgical History: Tonsillectomy, , lap band s/p removal, lipoma resection, laser eye surgery, cataract removal
Family History: Sister- brain tumor.
Social History: Former smoker. Occasional alcohol. No illicit drug use.
Allergies: Sulfa, propranolol, nickel, adhesive.
Home Medications: See below.
Review of Symptoms:
Patient denies any fever, headache, chest pain, shortness of breath, GI or symptoms.
�Per the HPI.�All systems are reviewed negative except above.
Physical Exam:
The patient is afebrile, abdomen is nondistended, breathing is unlabored, skin is warm and dry, no edema.
Neurologic Examination:
The patient is awake, alert and oriented x 3. She is able to follow commands and answer questions appropriately. There is no aphasia or dysarthria. On cranial nerve assessment, pupils are 3 mm bilateral, round and reactive to light and
accommodation. Visual lucia are full. Extraocular movements are intact. There is slight left eye ptosis. Hearing is intact bilaterally to normal conversation volume. Tongue palate and uvula are midline. Sternocleidomastoid strengths are full
bilaterally. Motor strengths are 5/5 bilateral upper and lower extremities on medical research [place] scale. There is no drift or involuntary movement noted. There was no extinction noted on double simultaneous stimulation. Coordination is intact
by finger to nose bilaterally.
Lab Results: See below.
Neurological Imaging:
1. CT Head 06/21/25: No acute intracranial abnormality. No interval change.
2. CTA head/neck 06/21/25: No acute intracranial abnormality. No interval change.
Differentials for the patient's presentation include:
1. Likely a postcoital headache exacerbated by uncontrolled hypertension producing symptoms.
2. History of migraine with aura.
Patient has the following risk factors for their symptoms: Uncontrolled HTN.
Recommendations:
-MRI brain noncontrast pending.
-Goal normotension.
Discussed patient care with: Dr. Hirsch, the patient
Vital Signs and Labs
-
Vital Signs and Labs:
Vital Signs
Temp Pulse Resp BP Pulse Ox
98.1 F 85 15 157/88 92
06/22/25 07:15 06/22/25 08:45 06/22/25 08:45 06/22/25 08:00 06/22/25 08:45
Lab Results
06/22/25 05:54
06/22/25 05:54
Sodium 136 mmol/L (135-145) 06/22/25 05:54
Potassium 3.8 mmol/L (3.5-5.1) 06/22/25 05:54
BUN 14 mg/dl (7-17) 06/22/25 05:54
Glucose 85 mg/dl (70-99) 06/22/25 05:54
Calcium 9.4 mg/dl (8.4-10.2) 06/22/25 05:54
LDL Cholesterol, Calc 96 mg/dl 06/22/25 05:54
Vitamin B12 Cancelled 06/22/25 05:54
Medications
-
Active Medications
Generic Name Dose Route Start Last Admin
Trade Name Freq PRN Reason Stop Dose Admin
Acetaminophen 650 mg 06/21/25 23:41 06/22/25 00:03
Acetaminophen 325 Mg Tablet PO 07/19/25 23:40 650 mg
Q4HPRN PRN Administration
mild pain/ fever>100.5F
Amlodipine Besylate 5 mg 06/22/25 08:00
Amlodipine 5 Mg Tablet PO 07/20/25 07:59
DAILY ERYN
Home Medications
�Medication �Instructions �Recorded
No Meds [No Current Medications] 06/21/25
NIH Stroke Score
Subsequent NIH Scale
Date of Subsequent NIH Scale: 06/22/25
Time of Subsequent NIH Scale: 08:45
NIH Stroke Score
Level of Consciousness: 0 - Alert
LOC Questions: 0-Answers both correctly
LOC Commands: 0-Performs both correctly
Best Horizontal Gaze: 0-Normal
Visual Lucia: 0=Normal, no visual loss
Facial Palsy: 1=Minor paralysis
Motor - Right Arm: 0=No drift 10 seconds
Motor - Left Arm: 0=No drift 10 seconds
Motor - Right Le-No drift 5 seconds
Motor - Left Le-No drift 5 seconds
Limb Ataxia: 0-Absent
Sensation: 0-Normal
Best Language: 0-No aphasia
Dysarthria: 0-Normal
Extinction and Inattention: 0-No abnormality
NIH Total Score:: 1
Modified Cel[place] (mRS) Score
Modified [place] Scale (mRS): No significant disability. Able to carry out usual activities.
Score: 1

Documented by User: Kishan Hirsch MD 06/22/25 15:09
NIH Stroke Score
NIH Stroke Score
NIH Total Score:: 1
Modified [place] (mRS) Score
Score: 1
[2025-06-22 09:05] LABS: Glycohemoglobin (HgbA1c) 5.1 % (4.0-5.9)
[2025-06-22 09:13] VITALS: BP 175/104
[2025-06-22] MEDS: NORVASC 5 MG PO (09:27)
[2025-06-22 12:00] VITALS: BP 157/90
[2025-06-22] MEDS: ATIVAN 1 MG PO (13:00)
--- NOTE | 2025-06-22 15:33 | W.DCSUMMARY ---
Addendum entered and electronically signed by Amanda Nava MD 06/23/25 07:00:
Read, reviewed, and agree. See same day progress note for additional details. Time spent coordinating care, DC planning, review of DC plan of care with resident, transition of care, review of records in EMR, med rec, consults, notes, d/w
consultants, nursing, family, and CM = 33 minutes
Original Note:
Discharge Summary
Discharge Data
Date of Admission: 06/21/25
Date of Discharge: 06/22/25
-
Pending Results: Yes
Additional Pending Results:
acetylcholine receptor antibodies
Hospital Course
Discharging Physician : Amanda Nava MD ; Jaclyn Hartley MD
Disposition : home
Primary care physician : Thomas Givens MD
Principal Discharge diagnosis : elevated BP, post-coital headache
Chronic Discharge diagnosis : N/A
Hospital Course :
Patient is a 64-year-old F with no significant past medical history/on no medications at home who presented with 2 episodes of postcoital headaches over the past 2 weeks. Patient reported that symptoms occur 3 to 5 minutes after sexual activity and
last for about 10 minutes. She has no history of prior symptoms. Patient also noted slight drooping of right lower eyelid.
CT scan of the head, MRI of the brain, and CTA of the head and neck demonstrated no signs concerning for CVA and no carotid artery stenosis. Patient had no focal neurologic deficits on exam. Most likely etiology of headaches are postcoital
headaches triggered by elevated blood pressure. Patient's BP was 175/104 during this admission (at time of presentation and the following day). Patient was started on 5 mg amlodipine daily, which was prescribed and recommended to be continued
after discharge. Recommended that she follow-up with her primary care for further evaluation of elevated blood pressures and management of likely hypertension moving forward.
Due to patient endorsing drooping of eyelid, acetylcholine receptor antibodies were ordered for workup of potential myasthenia gravis. No significant ptosis noted on exam, and patient clarified that the drooping was of the lower, not upper, eyelid,
making MG unlikely. However, labs were ordered and results are pending. For follow-up outpatient.
Important imaging findings :
CT head 06/21:
Unenhanced CT imaging of the head reveals no findings to suggest recent infarction, intracranial hemorrhage, extra-axial fluid collection, mass effect or midline shift. The ventricles, cisterns and sulci are within the limits of normal. The
brainstem and posterior fossa structures demonstrate no significant focal abnormality.
CTA head/neck 06/21:
CTA Head: No significant arterial stenosis. No aneurysm.
CTA Neck: No significant arterial stenosis. Multinodular goiter, similar to prior.
Multiple mildly prominent lymph nodes of the visualized upper mediastinum which are stable from prior. Mosaic attenuation of the lungs with scattered pulmonary nodules measuring up to 1.2 cm in the left upper lobe, similar to prior.
MRI brain 06/22:
No acute intracranial abnormality noted. Specifically, no acute infarct. A few scattered small faint white matter foci of subtle increased signal intensity on and FLAIR, nonspecific. Findings usually do not correlate clinically, and may reflect
minor chronic ischemic change.
Procedure findings : N/A
Discharge Plan
-
Patient Disposition: Home (Routine Discharge)
Discharge Diagnosis/Procedures: post-coital headache; uncontrolled essential HTN
Condition: Good
Diet: Low Sodium
Activity: No restrictions
Driving Restrictions: As prior to admission
Bathing Restrictions: None
Referrals:
Thomas Givens MD [Family Provider, [facility]] - in one week
Referral Note: BP management
Additional Discharge Medication Instructions: Please take 5mg amlodipine daily to help control your elevated blood pressure, which likely contributed to your headaches.
Please follow up with your primary care doctor for further evaluation & management of your blood pressure.
Prescriptions:
New
amlodipine 5 mg Tablet
5 mg PO DAILY 30 Days Qty: 30 0RF
Discharge Orders:
Discharge Patient (As Directed); Ordered 12/17/25
Ordered By: Jaclyn Hartley
Discharge Date and Time
Print Language: CHINESE
--- NOTE | 2025-06-22 15:59 | EDCM ---
Reviewed chart and met with pt bedside in ED. Pt informed me she is being discharged, had MRI earlier today. will transport home. Reviewed observation status and LICEA, pt declined to sign.
--- NOTE | 2025-06-22 16:49 | CM ---
Patient seen at bedside earlier this morning. Patient plan is to return to home with . Patient lives in a 2 story home. Patient has no DME and her PCP is Dr. Givens. Patient PCP is [facility] on [facility] line on [address]. Patient reviewed
OBS/LICEA form and signed form given to community relations assistant and patient for discharge today. CM will continue to follow for discharge planning needs.
Plan; home with no needs at this time
== END 2025-06-22 16:01 | disposition home or self-care (01) ==
LOC: ED 23:35
PROVIDERS: Physician Assistant Medical; Registered Nurse; ADMITTING PHYSICIAN Hospitalist; ATTENDING PHYSICIAN Internal Medicine; CONSULT PHYSICIAN Psychiatry & Neurology Neurology; EMERGENCY PHYSICIAN Student in an Organized Health Care Education/Training Program; FAMILY PHYSICIAN Family Medicine
DX: I16.0 Hypertensive urgency (principal); I10 Essential (primary) hypertension; R51.9 Headache, unspecified; H02.409 Unspecified ptosis of unspecified eyelid; Z87.891 Personal history of nicotine dependence; Z79.899 Other long term (current) drug therapy
CPT/HCPCS: 70450; 70496; 70498; 70551; 80048; 80053; 80061; 83036; 84443; 85025; 85027; 86041; 93005; 99285; G0378; Q9967